=== PATIENT | male | born 1950 | race Caucasian/White ===

== ENCOUNTER 2020-04-27 08:44 | Emergency (ER) | payer OTHER, MEDICARE, BC ==
[2020-04-27] MEDS ORDERED: Lidocaine 1% with EPINEPHrine 1:100,000 50 ML MDV INFILT STA (09:19)
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
[2020-04-27] MEDS ORDERED: Diphtheria,Pertussis(Acell),Tetanus Vaccine 0.5 ML Syringe IM ONE (09:20)
[2020-04-27] MEDS ORDERED: Bacitracin Oint 1 GM U/D Packet TOP ONE (09:44)
[2020-04-27] MEDS ORDERED: Bacitracin Oint 28.35 GM Tube TOP SCH (14:00)
== END 2020-04-27 12:54 | disposition home or self-care (01) ==
LOC: JP.ED 08:44
DX: S01.412A Laceration without foreign body of left cheek and temporomandibular area, initial encounter (principal); S50.811A Abrasion of right forearm, initial encounter; Z79.899 Other long term (current) drug therapy; Z23 Encounter for immunization; V48.5XXA Car driver injured in noncollision transport accident in traffic accident, initial encounter
CPT/HCPCS: 12011; 90471; 90715; 99282; 99284-25